=== PATIENT | male | born 1955 | race Caucasian/White ===

== ENCOUNTER 2019-08-31 23:33 | Inpatient (IN) | payer OTHER ==
[~2019-08-31] VITALS: Ht 185.4 cm; Wt 93.1 kg
[2019-09-01] VITALS (9 sets, daily range): BP systolic 115–126; BP diastolic 63–83
[2019-09-01] MEDS ORDERED: morphine 4 MG/ML inj SYRINge IV ONE (00:05)
[2019-09-01] MEDS ORDERED: ondansetron/PF 4mg/2ml inj IV ONE (00:05)
[2019-09-01] MEDS ORDERED: normal saline 1000ml 1,000 ML IV ONE (00:05)
[2019-09-01 00:25] LABS: BASOPHILS # (AUTO) 0.1 X10'3 (0-0.2); BASOPHILS % (AUTO) 0.5 % (0-1); EOSINOPHILS % (AUTO) 0.1 % (0-6); HEMATOCRIT 49.7 % (42.0-52.0); HEMOGLOBIN 16.6 g/dl (14.0-17.9); LYMPHOCYTES # (AUTO) 1.5 X10'3 (1.1-4.8); LYMPHOCYTES % (AUTO) 8.3 % (21-51); MEAN CORPUSCULAR HEMOGLOBIN 30.8 PG (27.0-31.0); MEAN CORPUSCULAR HGB CONC 33.5 g/dL (33.0-36.5); MEAN CORPUSCULAR VOLUME 92.1 FL (78-98); MEAN PLATELET VOLUME 8.3 FL (7.4-10.4); MONOCYTES % (AUTO) 5.4 % (2-12); NEUTROPHILS # (AUTO) 15.3 X10'3 (1.8-7.7); NEUTROPHILS % (AUTO) 85.7 % (42-75); PLATELET COUNT 356 X10'3 (140-440); RED BLOOD COUNT 5.39 X10'6 (4.70-6.10); RED CELL DISTRIBUTION WIDTH 14.4 % (11.5-14.5); WHITE BLOOD COUNT 17.8 X10'3 (4.5-11.0)
[2019-09-01 00:35] LABS: ALANINE AMINOTRANSFERASE 56 U/L (12-78); ALBUMIN 4.3 G/DL (3.4-5.0); ALBUMIN/GLOBULIN RATIO 1.1 (1.1-1.5); ALKALINE PHOSPHATASE 88 IU/L (46-116); ANION GAP 17 (8-16); ASPARTATE AMINO TRANSFERASE 35 U/L (10-37); BILIRUBIN,TOTAL 0.6 MG/DL (0.1-1.0); BLOOD UREA NITROGEN 9 MG/DL (7-18); CALCIUM 8.9 MG/DL (8.5-10.1); CHLORIDE 90 MMOL/L (99-107); CREATININE 1.13 MG/DL (0.60-1.10); GLUCOSE 132 MG/DL (70-104); LIPASE 87 U/L (73-393); POTASSIUM 3.1 MMOL/L (3.5-5.1); SODIUM 132 MMOL/L (135-145); TOTAL CARBON DIOXIDE 25.5 MMOL/L (24-32); TOTAL PROTEIN 8.2 G/DL (6.4-8.2); eGFR 66 ML/MIN
--- NOTE | 2019-09-01 01:08 | NUR ---
Patient to CT
[2019-09-01 01:19] LABS: CLARITY,URINE CLEAR (Clear); COLOR,URINE YELLOW (Yellow); GLUCOSE, URINE NEGATIVE (Neg); KETONES,URINE 40 mg/dl (Neg); LEUKOCYTE ESTERASE ,URINE NEGATIVE (Neg); NITRITES, URINE NEGATIVE (Neg); OCCULT BLOOD,URINE TRACE-INTACT (Neg); PH,URINE 7.5 (4.8-8.0); PROTEIN,URINE TRACE mg/dl (Neg); UROBILINOGEN,URINE 0.2 E.U/dL (0.2-1.0)
[2019-09-01] MEDS ORDERED: metroNIDAZOLE-Flagyl 500mg/NS 100 ML IV ONE (01:30)
[2019-09-01] MEDS ORDERED: CefTRIAXone/D5W-Rocephin 1gm 50 ML IV ONE (01:30)
[2019-09-01 01:31] LABS: UA COLLECTION TYPE CLN CATCH MIDSTREAM
[2019-09-01 01:42] LABS: BACTERIA,URINE FEW /HPF (Neg); MUCUS STRANDS MODERATE /LPF (Neg); SQUAMOUS EPITHELIAL CELL,UR NONE SEEN /LPF (FEW); WBC,URINE 0-4 /HPF (0-4)
[2019-09-01] MEDS ORDERED: morphine 10mg/ml inj. IV ONE (01:45)
[2019-09-01] MEDS ORDERED: morphine 2 MG/ML inj. syringe IV PRN ×3 (04:00→08:50)
[2019-09-01] MEDS ORDERED: potassium Cl 20mEq in NS 1,000 ML IV SCH (04:00)
[2019-09-01] MEDS ORDERED: ondansetron/PF 4mg/2ml inj IV PRN ×2 (04:00→08:50)
[2019-09-01] MEDS ORDERED: LORazepam 2 mg/ml vial IV PRN (04:10)
--- NOTE | 2019-09-01 07:19 | NUR ---
SURGERY CALLED AND WILL BE TAKING PATIENT TO OR AT 0800. TC FROM , [facility] FOR CONDITION REPORT. INFORMED THAT HE WILL BE GOING TO SURGERY THIS MORNING FOR APPENDECTOMY. CONTACT NUMBER FOR IS:
--- NOTE | 2019-09-01 07:20 | NUR ---
[facility] RE[facility] () PHONE [phone] (HOME NUMBER)
[2019-09-01] MEDS ORDERED: BUPIVAcaine/PF 2.5 mg/ml (0.25%) 30ml vial ONE (07:38)
--- NOTE | 2019-09-01 07:51 | NUR ---
VOIDED PER URINAL. WALLET PLACED IN SAFEKEEPING PER REGISTRATION. DRESSED IN GOWN WITH ALL JEWELRY AND HEARING AIDES REMOVED IN PATIENT BELONGING BAG. REMAINS NPO FOR SURGERY. CALLING ON PHONE AT THE PRESENT TIME.
[2019-09-01] MEDS ORDERED: ciprofloxacin lact 400MG/200ML 200 ML IV SCH (08:00)
[2019-09-01] MEDS ORDERED: metroNIDAZOLE-Flagyl 500mg/NS 100 ML IV SCH (08:00)
[2019-09-01] MEDS ORDERED: HYDR25TA4 PO (08:20)
[2019-09-01] MEDS ORDERED: TERA2CAP4 PO (08:20)
[2019-09-01] MEDS ORDERED: OXYB10TA4 PO (08:20)
[2019-09-01] MEDS ORDERED: LISI30TA PO (08:20)
--- NOTE | 2019-09-01 08:21 | NUR ---
TO SURGERY PER [facility] IN GOOD CONDITION.
[2019-09-01] MEDS ORDERED: ringers solution, lacted 1,000 ML IV SCH (08:46)
[2019-09-01] MEDS ORDERED: meperidine/PF 25mg/ml syringe IV PRN ×3 (08:50)
[2019-09-01] MEDS ORDERED: proCHLORperazine 10 MG/2 ml inj IV PRN (08:50)
[2019-09-01] MEDS ORDERED: morphine 4 MG/ML inj SYRINge IV PRN (08:50)
[2019-09-01] MEDS ORDERED: sevoflurane 250ml liquid IH ONE (09:10)
[2019-09-01] MEDS ORDERED: ondansetron/PF 4mg/2ml inj ONE (09:10)
[2019-09-01] MEDS ORDERED: midazolam 2 mg/2 ml injection ONE (09:13)
[2019-09-01] MEDS ORDERED: fentaNYL/PF 50MCG/1 ML 2ML syringe ONE (09:13)
[2019-09-01] MEDS ORDERED: propofol inj 20 ML IV ONE (09:14)
[2019-09-01] MEDS ORDERED: LIDOcaine 2% (20mg/ml) 5ml vial ONE (09:14)
[2019-09-01] MEDS ORDERED: rocuronium 10mg/ml inj IV ONE (09:15)
[2019-09-01] MEDS ORDERED: dexamethasone sod phosphate 4mg/ml inj. ONE (09:31)
[2019-09-01] MEDS ORDERED: ketorolac trometh. 30mg/ml inj. ONE (09:35)
[2019-09-01] MEDS ORDERED: meperidine/PF 25mg/ml syringe ONE (09:46)
[2019-09-01] MEDS ORDERED: neostigmine methylsulfate 1 MG/ML 10ml vial ONE (09:53)
[2019-09-01] MEDS ORDERED: glycopyrrolate 0.2mg/ml inj ONE (09:53)
--- NOTE | 2019-09-01 10:10 | NUR ---
Received from OR via [facility], accompanied by Anesthesiologist CORI and report given by Anesthesiolgist. PT SLEEPY, OXYGENATING WELL ON 10 LPM O2 VIA MASK, NO RESP DISTRESS NOTED. DENIES NAUSEA OR PAIN AT THIS TIME. LARGE BANDAIDS TO 3 ABD TROCAR SITES, CDI. VSS.
[2019-09-01] MEDS ORDERED: HYDROcodone/acetaminophen 10/325mg tab PO ONE (10:30)
--- NOTE | 2019-09-01 11:50 | NUR ---
PAIN WELL CONTROLLED. VSS. PT TOLERATING PO FLUIDS WELL. DC INSTRUCTIONS EXPLAINED TO PT, HE VERBALIZED UNDERSTANDING. PRESCRIPTION GIVEN TO PATIENT. DCD IN STABLE CONDITION, TAKEN TO CAR VIA WC.
== END 2019-09-01 14:27 | disposition home or self-care (01) | DRG 343 ==
LOC: ER 23:34 → ED HOLD 09-01 04:00
PROVIDERS: ADMIT Internal Medicine; ATTEND Internal Medicine
PROC: 0DTJ0ZZ Resection of Appendix, Open Approach (ICD-10-PCS; principal; 2019-09-01 09:10)
DX: K35.80 Unspecified acute appendicitis (principal); F17.210 Nicotine dependence, cigarettes, uncomplicated; I10 Essential (primary) hypertension; J44.9 Chronic obstructive pulmonary disease, unspecified; K21.9 Gastro-esophageal reflux disease without esophagitis; N40.0 Benign prostatic hyperplasia without lower urinary tract symptoms; F41.8 Other specified anxiety disorders; Z91.041 Radiographic dye allergy status
CPT/HCPCS: 36415; 74176; 80053; 81001; 83605; 83690; 85025; 85610; 93005; 96361; 96365; 96368; 96375; 99285; A4215; A4618; A7000; G0378; J0696; J1100; J1885; J2001; J2175; J2250; J2270; J2405; J2704; J2710; J3010; J3490; J7030; J7120

== ENCOUNTER 2020-09-11 14:42 | Emergency (ER) | payer OTHER ==
[~2020-09-11] VITALS: Ht 188 cm; Wt 96.0 kg
[~2020-09-11 14:42] MED LIST: HYDR25TA4 PO; LISI30TA PO; OXYB10TA4 PO; TERA2CAP4 PO
[2020-09-11 15:25] VITALS: BP 110/70
[2020-09-11] MEDS ORDERED: normal saline 1000ML IV soln IVB ONE ×2 (15:55→16:40)
--- NOTE | 2020-09-11 16:11 | NUR ---
no rooms available in ER, pt to remain outside [facility], pt has a fan on him, resting quietly on chair, no complaints at this time
[2020-09-11 16:25] LABS: BASOPHILS % (AUTO) 0.3 % (0-1); EOSINOPHILS % (AUTO) 0 % (0-6); HEMATOCRIT 44.5 % (42.0-52.0); HEMOGLOBIN 15.6 g/dl (14.0-17.9); LYMPHOCYTES # (AUTO) 0.8 X10'3 (1.1-4.8); LYMPHOCYTES % (AUTO) 11.2 % (21-51); MEAN CORPUSCULAR HEMOGLOBIN 31.9 PG (27.0-31.0); MEAN CORPUSCULAR HGB CONC 34.9 g/dL (33.0-36.5); MEAN CORPUSCULAR VOLUME 91.2 FL (78-98); MEAN PLATELET VOLUME 8.4 FL (7.4-10.4); MONOCYTES # (AUTO) 0.7 X10'3 (0-0.9); MONOCYTES % (AUTO) 9.7 % (2-12); NEUTROPHILS # (AUTO) 5.4 X10'3 (1.8-7.7); NEUTROPHILS % (AUTO) 78.8 % (42-75); PLATELET COUNT 228 X10'3 (140-440); RED BLOOD COUNT 4.88 X10'6 (4.70-6.10); RED CELL DISTRIBUTION WIDTH 13.7 % (11.5-14.5); WHITE BLOOD COUNT 6.8 X10'3 (4.5-11.0)
[2020-09-11 16:33] LABS: ALANINE AMINOTRANSFERASE 43 U/L (12-78); ALBUMIN 4.2 G/DL (3.4-5.0); ALBUMIN/GLOBULIN RATIO 1.1 (1.1-1.5); ALKALINE PHOSPHATASE 79 IU/L (46-116); ANION GAP 13 (8-16); ASPARTATE AMINO TRANSFERASE 43 U/L (10-37); BILIRUBIN,TOTAL 0.3 MG/DL (0.1-1.0); BLOOD UREA NITROGEN 11 MG/DL (7-18); BUN/CREATININE RATIO 9.3 (5.4-32.0); CALCIUM 8.8 MG/DL (8.5-10.1); CHLORIDE 91 MMOL/L (99-107); CREATININE 1.18 MG/DL (0.60-1.10); GLUCOSE 99 MG/DL (70-104); POTASSIUM 3.5 MMOL/L (3.5-5.1); SODIUM 128 MMOL/L (135-145); TOTAL CARBON DIOXIDE 23.6 MMOL/L (24-32); TOTAL PROTEIN 7.9 G/DL (6.4-8.2); eGFR 62 ML/MIN
[2020-09-11] MEDS ORDERED: iohexol 350MG/ML 100ml bottle IV ONE (16:42)
[2020-09-11 17:09] LABS: C-REACTIVE PROTEIN 0.69 MG/DL (0.0-0.5); FERRITIN 255 NG/ML (26-388); LACTATE DEHYDROGENASE 222 U/L (85-227)
== END 2020-09-11 17:46 | disposition home or self-care (01) ==
LOC: ER 14:42
DX: U07.1 COVID-19 (principal); R05 Cough; R55 Syncope and collapse; E87.1 Hypo-osmolality and hyponatremia; I10 Essential (primary) hypertension; Z91.041 Radiographic dye allergy status; Z79.899 Other long term (current) drug therapy
CPT/HCPCS: 36415; 71045; 71275; 80053; 82728; 83605; 83615; 84145; 84484; 85025; 85384; 86140; 87040; 87635; 93005; 96360; 99285; C9803; J7030; Q9967

== ENCOUNTER 2022-01-31 12:19 | Emergency (ER) | payer OTHER ==
[~2022-01-31] VITALS: Ht 185.4 cm; Wt 98.0 kg
[2022-01-31 12:35] LABS: BASOPHILS # (AUTO) 0.1 X10'3 (0-0.2); BASOPHILS % (AUTO) 0.6 % (0-1); EOSINOPHILS % (AUTO) 0.3 % (0-6); HEMATOCRIT 45.8 % (42.0-52.0); HEMOGLOBIN 15.5 g/dl (14.0-17.9); LYMPHOCYTES # (AUTO) 2.6 X10'3 (1.1-4.8); LYMPHOCYTES % (AUTO) 31.7 % (21-51); MEAN CORPUSCULAR HEMOGLOBIN 31.8 PG (27.0-31.0); MEAN CORPUSCULAR HGB CONC 33.7 g/dL (33.0-36.5); MEAN CORPUSCULAR VOLUME 94.3 FL (78-98); MEAN PLATELET VOLUME 7.8 FL (7.4-10.4); MONOCYTES # (AUTO) 0.7 X10'3 (0-0.9); NEUTROPHILS # (AUTO) 4.8 X10'3 (1.8-7.7); NEUTROPHILS % (AUTO) 59.4 % (42-75); PLATELET COUNT 307 X10'3 (140-440); RED BLOOD COUNT 4.86 X10'6 (4.70-6.10); RED CELL DISTRIBUTION WIDTH 13.7 % (11.5-14.5); WHITE BLOOD COUNT 8.1 X10'3 (4.5-11.0)
[2022-01-31 13:01] LABS: ALANINE AMINOTRANSFERASE 39 U/L (12-78); ALBUMIN 4.2 G/DL (3.4-5.0); ALBUMIN/GLOBULIN RATIO 1.1 (1.1-1.5); ALKALINE PHOSPHATASE 96 IU/L (46-116); ANION GAP 8 (8-16); ASPARTATE AMINO TRANSFERASE 32 U/L (10-37); BILIRUBIN,TOTAL 0.5 MG/DL (0.1-1.0); BLOOD UREA NITROGEN 7 MG/DL (7-18); BUN/CREATININE RATIO 6.9 (5.4-32.0); CALCIUM 9.3 MG/DL (8.5-10.1); CHLORIDE 98 MMOL/L (99-107); CREATININE 1.02 MG/DL (0.60-1.10); GLUCOSE 105 MG/DL (70-104); MAGNESIUM 1.8 MG/DL (1.5-2.4); POTASSIUM 3.4 MMOL/L (3.5-5.1); SODIUM 135 MMOL/L (135-145); TOTAL CARBON DIOXIDE 29.2 MMOL/L (24-32); eGFR 73 ML/MIN
[2022-01-31] MEDS ORDERED: amLODIPine 5mg tablet PO ONE (19:15)
[2022-01-31 19:26] VITALS: BP_DIAS 122
[2022-01-31] MEDS ORDERED: AMLO5TAB PO (19:28)
[2022-01-31 19:31] VITALS: BP_SYST 177
--- NOTE | 2022-01-31 20:07 | NUR ---
Agree with general assessment of [employer].
== END 2022-01-31 20:08 | disposition home or self-care (01) ==
LOC: ER 12:20
DX: I10 Essential (primary) hypertension (principal); E78.00 Pure hypercholesterolemia, unspecified; G89.29 Other chronic pain; M54.50 Low back pain, unspecified; Z91.041 Radiographic dye allergy status; Z87.891 Personal history of nicotine dependence
CPT/HCPCS: 36415; 80053; 83735; 83880; 84484; 85025; 93005; 99284